=== PATIENT | female | born 1955 | race Caucasian/White ===

== ENCOUNTER → 2023-03-24 | Outpatient (CLI) | payer MEDICARE, SELFPAY ==
--- NOTE | 2023-03-24 06:56 | EKG12_ITS ---
Test Reason : PRE OP Blood Pressure : / mmHG Vent. Rate : 074 BPM Atrial Rate : 074 BPM P-R Int : 160 ms QRS Dur : 070 ms QT Int : 360 ms P-R-T Axes : 051 007 061 degrees QTc Int : 399 ms Normal sinus rhythm Low voltage QRS Borderline ECG Confirmed by KIAN DOOLEY, SHIRA ([id number]), news video editor NORBERTO UREÑA ([id number]) on 03/25/2023 8:15:35 AM Referred By: Ernst Rosales Confirmed By:SHIRA LANGSTON MD
--- NOTE | 2023-03-24 07:00 | CT_ITS ---
CT LEFT LOWER EXTREMITY WITH 3-D IMAGING CLINICAL INDICATION: UNILATERAL PRIMARY OSTEOARTHRITIS. [facility] protocol. TECHNIQUE: Axial CT images of the LEFT lower extremity was performed IV contrast material. Coronal and sagittal reformats were provided. RADIATION DOSAGE (If Supplied By Facility): CTDIvol = ( 20.10 ) mGy, DLP = ( 1177.54 ) mGycm COMPARISON: FINDINGS: Bones: Imaging of the left hip joint was obtained. This is 7.2 mm subchondral cyst overlying the superior lateral aspect of the acetabulum. The joint space is relatively well maintained. Imaging of the knee joint was obtained. Moderate degree of joint space narrowing involving the medial compartment of knee joint. Moderate degree of joint space narrowing of the patellofemoral joint and small joint effusion. Degenerative spur formation is seen at the level of the medial and lateral femoral condyles as well as the medial and lateral tibial plateau. Imaging of the ankle joint was obtained. No significant abnormality is seen. Soft Tissues: Small joint effusion. The superficial soft tissues are unremarkable without evidence of edema, hematoma, or foreign body. CT/Extremity Lower without Contra IMPRESSION: Osteoarthritis of the knee joint more prominent in the patellofemoral joint as well as the medial knee joint. Electronically Signed: Mariano José MD at 10:35 EDT ,
[2023-03-24 07:14] LABS: Absolute Lymphocyte Count 1.62 X10^3/uL (0.83-4.51); Absolute Neutrophil Count 2.5 X10^3/uL (2.0-7.7); Basophil# 0.04 X10^3/uL; Basophil% 0.8 % (0-1); Eosinophil# 0.18 X10^3/uL; Eosinophils% 3.7 % (0-5); Hematocrit 46.3 % (37-47); Hemoglobin 15.8 g/dL (12.0-15.0); Lymphocyte # 1.62 X10^3/ul (0.83-4.51); Lymphocyte % 33.2 % (19-41); Mean Corp Hgb Conc 34.1 g/dL (32-36); Mean Corpuscular Hgb 32.6 pg (27.0-32.0); Mean Corpuscular Volume 95.5 fL (81-99); Mean Platelet Vol. 9.3 fl (6.2-12.0); Monocyte# 0.58 X10^3/uL; Monocyte% 11.9 % (0-10); NRBC Flagged by Analyzer 0 % (0-5); Neutrophil # 2.45 X10^3/uL (2.7-7.7); Neutrophil % 50.2 % (47-70); Platelet Count 260 K/mm3 (150-450); RBC Distribution Width CV 12.4 % (11.6-14.6); RBC Distribution Width SD 43.7 fl (35.1-43.9); Red Blood Count 4.85 M/mm3 (4.2-5.4); White Blood Count 4.9 K/mm3 (4.4-11.0)
[2023-03-24 07:39] LABS: Anion Gap 2 (5-15); BUN 15 mg/dL (7-18); BUN/Creat Ratio 24.3 RATIO (10-20); Calcium,Total 8.8 mg/dL (8.5-10.1); Chloride 105 mmol/L (98-107); Creatinine, Serum 0.62 mg/dL (0.55-1.02); EST Glomerular Filtration Rate 103 mL/min (>60); Est Glom Filt Rate - Afr Amer 124 mL/min (>60); Glucose 96 mg/dL (74-106); Potassium 4.2 mmol/L (3.5-5.1); Sodium Level 136 mmol/L (136-145)
== END | disposition home or self-care (01) ==
PROVIDERS: Physician Assistant Surgical; PCP Internal Medicine; Referring Provider Orthopaedic Surgery; Visit Provider Orthopaedic Surgery
DX: Z01.818 Encounter for other preprocedural examination (principal); Z01.810 Encounter for preprocedural cardiovascular examination; M17.12 Unilateral primary osteoarthritis, left knee
CPT/HCPCS: 36415; 73700; 80048; 85025; 93005

== ENCOUNTER → 2023-03-30 | Outpatient (CLI) | payer MEDICARE, SELFPAY ==
--- NOTE | 2023-03-30 08:00 | KNEE_PTH ---
PATIENT: KERA CAMPUZANO LOC: [facility] U#:[id number] AGE/SX: 67/F ROOM: RE03/30/[address]: Dr. Ernst Rosales DO : 1955 BED: DIS: 03/30/2023 SPEC #: [id number] RECD: 03/30/23 15:13 STATUS: RADHA REQ #: [id number] ESTEE: 03/30/23 08:[address]: Ernst Rosales DEPT: SURGICAL PATHOLOGY RECD BY: Lesa Tijerina ENTERED: 03/31/23 07:58 SP TYPE: TOTAL KNEE OTHR DR: Dr. Mia Minor, [facility] Tissues: Knee, NOS Procedures: Decalcification bone/plaque Surgery Specimen Level IV HEADER OPERATION: Left knee arthroplasty with robotic assistance PRE-OP DIAGNOSIS: Grade IV osteoarthritis left knee TISSUE SUBMITTED: Left knee bone and tissue MICROSCOPIC DIAGNOSIS Bone and tissue, left knee, total knee replacement/resection: Pieces of bone with degenerative osteoarthritic changes. Fibroadipose tissue, fibroconnective tissue and reactive synovial tissue. Focal changes consistent with pseudogout. JACINTO:dino 04/04/2023 MICROSCOPIC DESCRIPTION Slides are reviewed. GROSS DESCRIPTION Received is one container designated bone and tissue left knee. The specimen consists of multiple fragments of tobias-yellow bone measuring in aggregate 10.0 x 11.0 x 3.5 cm. Also in the specimen container are multiple fragments of yellow-white soft tissue measuring in aggregate 8.0 x 5.0 x 1.5 cm. A number of bony fragments contain articular surfaces consistent with tibial plateau and femoral condyle and displaying prominent osteophyte formation, eburnation and bone erosion. Acute Care Occupational Therapist sections are submitted in two cassettes as follows: 1 - soft tissue, 2 - bone after decalcification. / JACINTO:dino 03/31/2023 TC:5 CPT: 44849, 36836
== END | disposition home or self-care (01) ==
LOC: LABSPEC 18:13
PROVIDERS: PCP Internal Medicine; Referring Provider Orthopaedic Surgery; Visit Provider Orthopaedic Surgery
DX: M17.12 Unilateral primary osteoarthritis, left knee (principal); Z96.652 Presence of left artificial knee joint
CPT/HCPCS: 88305; 88311

== ENCOUNTER → 2023-09-21 | Outpatient (CLI) | payer MEDICARE, SELFPAY ==
--- NOTE | 2023-09-21 10:22 | MRI_ITS ---
STUDY: AND WITHOUT CONTRAST REASON FOR EXAM: Female, 68 years old. Double vision TECHNIQUE: Standardized multiplanar fat and water weighted pulse sequences were obtained. IV 20ml clariscan was administered for the contrast portion of the examination. COMPARISON: MRI of the brain December 21, 2013 FINDINGS: Normal size of the ventricles and extra-axial spaces for the patient''s age. Minimal chronic white matter changes without mass effect or restricted diffusion. Normal bilateral basal ganglia. Normal thalami. There is no extra-axial fluid accumulation. Normal flow voids within the major intracranial circulation suggesting patency by spin echo criteria. Normal venous enhancement. There is no enhancing intra-axial or extra-axial abnormality. Normal sella turcica, pituitary gland, infundibular stalk, optic chiasm and hypothalamus. Normal tectal plate and pineal gland. Normal midbrain, marleny and medulla. Normal cerebellum. Normal basal cisterns. Normal bilateral temporal bones. Normal bilateral internal auditory canals. Postsurgical changes of the orbits.. Normal visualized paranasal sinuses. Normal calvarium and skull base. Normal visualized soft tissue structures. Normal visualized upper cervical spine. MRI/Brain W/WO Contrast IMPRESSION: Minimal white matter changes most likely chronic small vessel ischemia without evidence for acute infarct. Otherwise normal enhanced and unenhanced MRI of the brain. Electronically Signed: Jay Adhikari MD at 18:51 EDT ,
[2023-09-21 10:54] LABS: CREATININE FINGERSTICK < 0.9 mg/dL (0.55-1.02); EGFR FINGERSTICK > 60.0000 mL/min (>60)
== END | disposition home or self-care (01) ==
LOC: MRI 10:14
PROVIDERS: PCP Internal Medicine; Visit Provider Internal Medicine
DX: H53.2 Diplopia (principal)
CPT/HCPCS: 70553; A9575

== ENCOUNTER → 2024-04-05 | Outpatient (CLI) | payer MEDICARE, SELFPAY ==
[2024-04-05 10:56] LABS: Potassium 5.4 mmol/L (3.5-5.1)
== END | disposition home or self-care (01) ==
LOC: LABSPEC 10:24
PROVIDERS: PCP Internal Medicine; Referring Provider Internal Medicine; Visit Provider Internal Medicine
DX: E87.5 Hyperkalemia (principal)
CPT/HCPCS: 84132

== ENCOUNTER → 2024-05-21 | Outpatient (CLI) | payer MEDICARE, SELFPAY ==
--- NOTE | 2024-05-21 13:22 | ECHOCS_ITS ---
Reason For Study: MVP Procedure This was a 2D Doppler, Color Flow transthoracic echocardiogram. The study was technically difficult. Contrast injection was performed. Exam performed in department. Left Ventricle Normal size and thickness. The left ventricular ejection fraction is 65 %. Normal diastology for age. Right Ventricle Normal right ventricle. Atria The left and right atria are normal. Mitral Valve Mildly thickened posterior mitral valve leaflet. No prolapse. Trivial mitral valve insufficiency. Tricuspid Valve Trivial tricuspid valve insufficiency. Normal pulmonary artery pressure. Aortic Valve Trisinus/trileaflet aortic valve. Trivial aortic valve insufficiency. Pulmonic Valve The pulmonic valve is not well visualized. Great Vessels Mildly dilated aortic root. Pericardium/Pleural No pericardial effusion. Medication 22 gauge I.V. with prn adaptor inserted into right arm. Diluted definity 1ml given slow IV push to enhance endocardial definition. MMode/2D Measurements & Calculations LVIDd: 4.3 cm IVSd: 0.88 cm Ao root diam: 3.9 cm LVIDs: 2.8 cm LVPWd: 0.97 cm LA dimension: 3.9 cm RVDd: 3.4 cm FS: 34.6 % LAV(MOD-bp): 40.8 ml LVAd ap4: 31.3 cm2 SV(MOD-sp4): 68.7 ml LAV(MOD-bp) Indexed: 19.8 ml/m2 LVLd ap4: 7.6 cm LAV(MOD-sp2): 33.8 ml EDV(MOD-sp4): 105.5 ml LAV(MOD-sp4): 43.3 ml EDV(sp4-el): 109.7 ml LVAs ap4: 16.6 cm2 LVLs ap4: 6.2 cm ESV(MOD-sp4): 36.7 ml ESV(sp4-el): 37.9 ml EF(MOD-sp4): 65.2 % EF(sp4-el): 65.4 % SV(sp4-el): 71.8 ml LA A4 area: 16.6 cm2 RA A4 area: 13.9 cm2 TAPSE: 2.7 cm Time Measurements MV dec time: 0.22 sec Doppler Measurements & Calculations MV E max cleve: 79.5 cm/sec Lat Peak E' Cleve: 8.2 cm/sec Med Peak E' Cleve: 6.5 cm/sec MV A max cleve: 88.1 cm/sec E/E' lat: 9.6 E/E' med: 12.2 MV E/A: 0.90 MV V2 max: 97.9 cm/sec MV P1/2t max cleve: 84.7 cm/sec Ao V2 max: 118.0 cm/sec MV max P.8 mmHg MV P1/2t: 65.2 msec Ao max P.6 mmHg MV V2 mean: 54.7 cm/sec Ao V2 mean: 78.1 cm/sec MV mean P.4 mmHg MV dec slope: 380.6 cm/sec2 Ao mean P.8 mmHg MV V2 VTI: 25.1 cm MVA(P1/2t): 3.4 cm2 Ao V2 VTI: 22.9 cm AV (velocity ratio): 1.1 LV V1 max: 117.7 cm/sec PA V2 max: 115.5 cm/sec TR max cleve: 201.4 cm/sec LV V1 max P.5 mmHg PA max PG (full): 3.0 mmHg TR max P.2 mmHg LV V1 mean P.7 mmHg PA V2 mean: 79.3 cm/sec LV V1 mean: 76.4 cm/sec PA mean PG (full): 1.6 mmHg LV V1 VTI: 24.4 cm ECHO/Echo Complete W/ Contrast Interpretation Summary The left ventricular ejection fraction is 65 %. The study was technically difficult. Mildly dilated aortic root. Mildly thickened posterior mitral valve leaflet. No prolapse. Ordering Physician: Mia Minor Referring Physician: Mia Minor Performed By: Sanjeev Walters RCS
== END | disposition home or self-care (01) ==
PROVIDERS: PCP Internal Medicine; Referring Provider Internal Medicine; Visit Provider Internal Medicine
DX: I34.1 Nonrheumatic mitral (valve) prolapse (principal)
CPT/HCPCS: 93306; Q9957; A4216; C8929

== ENCOUNTER → 2024-05-24 | Outpatient (CLI) | payer MEDICARE, SELFPAY ==
--- NOTE | 2024-05-24 09:24 | BD_ITS ---
STUDY: DUAL ENERGY X-RAY ABSORPTIOMETRY / DXA REASON FOR EXAM: Female, 68 years old. [id number] TECHNIQUE: Bone Mineral Density (BMD) measurements of lumbar spine and bilateral hips were obtained. COMPARISON: Comparison is made with prior study November 19, 2016. FINDINGS: Lumbar Spine (L1-L4): g/cm2 (1.081) / T-score (0.3) / Z-score (2.2) Findings are suggestive of normal bone density with a low fracture risk. Left Femur Total: g/cm2 (1.003) / T-score (0.5) / Z-score (1.8) Left Femoral Neck: g/cm2 (0.785) / T-score (-0.6) / Z-score (1.0) Right Femur Total: g/cm2 (0.970) / T-score (0.2) / Z-score (1.6) Right Femoral Neck: g/cm2 (0.794) / T-score (-0.5) / Z-score (1.1) The T-Scores on the most recent prior examination were: Lumbar Spine (L1-L4): There has been improvement of bone density since the previous examination. Left Femur Total: which represents an improvement of 1.4%. Right Femur Total: which represents an improvement of 3.2%. BD/Dexa Bone Density Study IMPRESSION: The patient is considered normal as outlined below according to World Ayan Organization (WHO) criteria with a low fracture risk. There has been improvement of bone density since the previous examination. Reference Information: The T-score is the number of standard deviations above or below the standard which is normal for young adults at their peak bone mineral density. The World Health Organization (WHO) interprets the T-scores as follows: Above -1 Normal bone density Between -1 and -2.5 Osteopenia Equal to / or below -2.5 Osteoporosis As a practical clinical guideline, osteopenia may be graded as follows: Mild -1 through -1.5 Moderate -1.6 through -2.0 Severe -2.1 through -2.4 The Z-score is the number of standard deviations above or below age-matched controls. A Z-score of less than -1.5 would be considered abnormal. References: 1. NIH Osteoporosis and Related Bone Diseases www osteo.org 2. International Society for Clinical Densitometry www iscd.org 3. National Osteoporosis Foundation www nof.org Electronically Signed: Mariano José MD at 10:43 EDT ,
--- NOTE | 2024-05-24 09:24 | BI_ITS ---
MAMMOGRAPHY - BILATERAL SCREENING REASON FOR EXAM: Female, 68 years old. Routine annual screening examination. PERTINENT HISTORY: Non-contributory. TECHNIQUE: Digital bilateral breast beatris (3D mammographic acquisition) in the CC and MLO projections. 2-D mediolateral oblique (MLO) and craniocaudad (CC) views of both breasts were obtained. CAD: Full Field Digital Mammography with Computer Added Detection was performed. COMPARISON: Comparison is made with prior study February 02, 2017 and January 21, 2016. FINDINGS: Breast Composition: There are scattered areas of fibroglandular density. There are no dominant masses or suspicious calcifications. No other significant abnormalities are identified. There has been no significant change since the prior study. BI/SCRN MAMM (CAD)W/BEATRIS BILAT IMPRESSION: Stable bilateral screening mammogram. Yearly follow-up mammogram recommended. (A) ASSESSMENT CATEGORY: BIRADS Category 1: Negative. A letter regarding these results will be sent to the patient by the facility within 30 days. Approximately 10% of breast cancers are not detected by mammography. A normal mammogram should not delay biopsy of a clinically suspicious abnormality. [id number] Electronically Signed: Mariano José MD at 12:01 EDT ,
== END | disposition home or self-care (01) ==
LOC: OPBD 09:23
PROVIDERS: PCP Internal Medicine; Referring Provider Internal Medicine; Visit Provider Internal Medicine
DX: Z12.31 Encounter for screening mammogram for malignant neoplasm of breast (principal); Z78.0 Asymptomatic menopausal state
CPT/HCPCS: 77063; 77067; 77080

== ENCOUNTER → 2025-11-18 | Outpatient (CLI) | payer MEDICARE, SELFPAY ==
[2025-11-18 10:25] LABS: Hematocrit 44.6 % (37-47); Hemoglobin 15.1 g/dL (12.0-15.0); Immature Granulocytes Count 0.010 X10^3/uL (0.0-0.0); Mean Corp Hgb Conc 33.9 g/dL (32-36); Mean Corpuscular Volume 91.8 fL (81-99); Mean Platelet Vol. 9.8 fl (6.2-12.0); NRBC Flagged by Analyzer 0 % (0-5); Platelet Count 221 K/mm3 (150-450); RBC Distribution Width CV 11.9 % (11.6-14.6); RBC Distribution Width SD 40.3 fl (35.1-43.9); Red Blood Count 4.86 M/mm3 (4.2-5.4); White Blood Count 5.1 K/mm3 (4.4-11.0)
[2025-11-18 10:51] LABS: Creatinine, Urine (random) 132.00 mg/dL (28.00-217.00); Microalbumin,Random Urine < 12.0 mg/L (<20 mg/L)
[2025-11-18 11:21] LABS: AST(SGOT) 27 U/L (<=31); Alanine Aminotransfer ALT/SGPT 19 U/L (<=34); Albumin, Serum 4.3 g/dL (3.4-4.8); Alkaline Phosphatase 95 U/L (35-104); Anion Gap 10 (5-15); BUN 19 mg/dL (4-19); BUN/Creat Ratio 22.5 RATIO (10-20); Calcium,Total 9.4 mg/dL (7.6-11.0); Carbon Dioxide 26.8 mmol/L (21.0-32.0); Chloride 101 mmol/L (98-108); Cholesterol 185 mg/dL (<=200); Globulin 2.8 g/dL (2.2-4.2); Glucose 100 mg/dL (70-99); Low Density Lipoprotein Calc. 108 mg/dL; Potassium 4.4 mmol/L (3.3-5.1); Triglycerides 90 mg/dL; Very Low Density Lipoprotein 18 mg/dL (5-40); Vitamin B12 694 pg/mL (180-914); cholesterol:hdl ratio screen 3.05
== END | disposition home or self-care (01) ==
LOC: CIMLAB 08:07
PROVIDERS: PCP Internal Medicine; Referring Provider Internal Medicine; Visit Provider Internal Medicine
DX: R41.3 Other amnesia (principal); R73.01 Impaired fasting glucose; E03.9 Hypothyroidism, unspecified
CPT/HCPCS: 36415; 80053; 80061; 82043; 82570; 82607; 83036; 84443; 85025